=== PATIENT | female | born 1995 | race Hispanic/Latino ===

== ENCOUNTER 2021-11-30 00:27 | Emergency (ER) | payer OTHER, SELFPAY ==
[2021-11-30 00:40] VITALS: BP 139/95; PULSE 96; RESP 18; TEMP 36.8; O2SAT 100
[2021-11-30 00:56] LABS: Basophils Percent Auto 0.4 % (0.2-1.2); Eosinophils Absolute Auto 0.2 K/mm3 (0-0.3); Eosinophils Percent Auto 2.1 % (0-4.4); Hematocrit 34.2 % (37.0-47.0); Hemoglobin 10.9 g/dL (12.0-15.0); Immature Granulocyte Absolute 0.03 K/mm3 (0.00-0.031); Immature Granulocyte Percent A 0.3 % (0-0.5); Lymphocytes Absolute Auto 2.45 K/mm3 (0.9-3.2); Lymphocytes Percent Auto 23.9 % (18.3-44.2); Mean Corpuscular HGB Conc 31.9 g/dl (32-36); Mean Corpuscular Hemoglobin 26.8 pg (26-34); Mean Corpuscular Volume 84.2 fl (80-100); Mean Platelet Volume 10.1 fl (7.4-10.4); Monocytes Absolute Auto 0.6 K/mm3 (0.1-0.6); Monocytes Percent Auto 6.1 % (2.6-8.5); Neutrophils Absolute Auto 6.9 K/mm3 (1.3-6.7); Neutrophils Percent Auto 67.2 % (45.5-73.1); Platelet Count Result 318 k/mm3 (150-375); Red Blood Count 4.06 M/mm3 (4.2-5.4); Red Cell Distribution Width 13.9 % (11.5-14.5); White Blood Count 10.3 K/mm3 (4.5-10.0)
[2021-11-30 01:11] LABS: Alanine Aminotransferase 21 U/L (4-35); Albumin Level 4.2 g/dL (3.5-5.1); Alkaline Phosphatase 61 U/L (38-126); Anion Gap 8 mmol/L (8-16); Aspartate Amino Transferase 25 U/L (14-36); Bilirubin,Total 0.2 mg/dL (0.2-1.3); Blood Urea Nitrogen 11 mg/dL (7-17); Calcium 9.3 mg/dL (8.4-10.2); Carbon Dioxide 24 mmol/L (22-30); Chloride 104 mmol/L (98-107); Estimated CRCL calculation 91 ml/min; Estimated Glomerular Filt Rate > 60; Glucose 135 mg/dL (65-110); Lipase 176 U/L (23-300); Sodium 136 mmol/L (137-145)
--- NOTE | 2021-11-30 01:24 | ED.ABDPAIN ---
HPI - Abdominal Pain General Chief Complaint: Abdominal Pain Stated Complaint: abd pain Time Seen by Provider: 11/30/21 01:11 Source: patient and RN notes reviewed Mode of arrival: ambulatory Limitations: no limitations History of Present Illness HPI narrative: This a 26 year old Female who presents for evaluation of epigastric abdominal pain. She states her pain started 1 hour ago. She describes pain has constant squeezing . She took an omeprazole for her pain but she states she has not gotten relief. She has nausea but no vomiting, fever , or chills. She denies history of gallstones or similar pain. She states her mother had similar pain and she was diagnosed with gastritis. Pain rate 10/10. She is 11 weeks GA. She reports having US to confirm and she is being referred to [facility] for diabetes. Related Data Allergies Allergy/AdvReac Type Severity Reaction Status Date / Time No Known Allergies Allergy Verified 11/30/21 00:47 Review of Systems Review of Systems: All systems reviewed & are unremarkable except as noted in HPI and below Constitutional: Constitutional: Denies chills, Denies fever(s) and Denies weakness Cardiovascular: Cardiovascular: Denies chest pain Respiratory: Respiratory: Denies cough and Denies dyspnea Gastrointestinal: Gastrointestinal: Reports abdominal pain, Denies constipation, Denies diarrhea, Denies nausea and Denies vomiting Genitourinary: Genitourinary: Denies abnormal vaginal bleeding [facility] Past Medical History Medical History (Updated 11/30/21 @ 06:14 by Ruba Arredondo MD) Patient denies medical problems Surgical History Surgical History (Updated 11/30/21 @ 06:14 by Ruba Arredondo MD) No pertinent past surgical history Social History Social History (Updated 08/05/19 @ 13:35 by Lorena Ricketts PA-C) Smoking status: Never smoker Substance use: never Exam Const: General: no acute distress and alert Orientation/consciousness: patient oriented x3 Eyes: EOM: EOMs intact bilaterally Chest: Chest palpation & inspection: normal inspection of the chest Resp: Effort & Inspection: normal respiratory effort and no retractions Auscultation: clear to auscultation bilaterally Cardio: Rate: regular rate Rhythm: regular rhythm Heart sounds: no murmurs GI: GI Palp: Yes Soft to palpation, Yes Tenderness to palpation present (GI) (mild epigastric) and No Guarding due to palpation present (GI) Auscultation: normal bowel sounds : General: Yes no CVA tenderness Back/Spine/Pelvis: Back: no CVA tenderness Skin: General skin exam: normal color Rashes: no rashes Neuro: General: patient oriented x3, moves all extremities and CN's II-XI intact bilaterally Extrem: General: normal to inspection Psych: Mental Status: mental status grossly normal Affect: normal affect Course Reevaluation(s) Reevaluation #1: Patient states her pain is resolving. I performed bedside US and she has IUP with heart tone 150. She also has stone in her gallbladder. Negative varma's Date: 11/30/21 Time: 03:52 Vital Signs Vital signs: Vital Signs Temperature 98.2 F 11/30/21 00:40 Pulse Rate 96 11/30/21 00:40 Respiratory Rate 18 11/30/21 00:40 Blood Pressure 139/95 H 11/30/21 00:40 Pulse Oximetry 100 11/30/21 00:40 Temperature 98.2 F 11/30/21 00:40 Pulse Rate 79 11/30/21 03:07 Respiratory Rate 20 11/30/21 03:07 Blood Pressure 129/77 11/30/21 03:07 Pulse Oximetry 100 11/30/21 03:07 MDM - Abdominal Pain Lab Data Attestation: I reviewed the patient's lab results. Result diagrams: 11/30/21 00:51 11/30/21 00:51 Labs: Lab Results 11/30/21 11/30/21 11/30/21 Range/Units 00:51 00:51 01:41 WBC 10.3 H (4.5-10.0) K/mm3 RBC 4.06 L (4.2-5.4) M/mm3 Hgb 10.9 L (12.0-15.0) g/dL Hct 34.2 L (37.0-47.0) % MCV 84.2 (80-100) fl MCH 26.8 (26-34) pg MCHC 31.9 L (32-36
[2021-11-30] MEDS: ONDANSETRON INJ 4 MG/2 ML VIAL IV PUSH (01:46)
[2021-11-30] MEDS: MAG HYDROX/AL HYDROX/SIMETH 30 ML UDC PO (01:46)
[2021-11-30] MEDS: DICYCLOMINE HCL INJ 20 MG/2 ML VIAL IM (01:46)
[2021-11-30 01:59] LABS: Add Urine Microscopic? YES; Appearance Urine Cloudy (Clear); Bacteria Urine Trace /hpf; Bilirubin Urine Negative (Negative); Blood Urine 1+ (Negative); Color Urine Yellow (Yellow); Glucose Urine UA Negative (Negative); Ketones Urine 1+ mg/dL (Negative); Leukocyte Esterase Ur 3+ LEU/UL (Negative); Nitrate Urine Negative (Negative); Protein Urine Negative (Negative); Specific Grav Ur 1.015 (1.001-1.035); Squamous Epithelial Cell Urine Few /hpf (Few); Urobilinogen Urine Negative mg/dL (<2.0)
--- NOTE | 2021-11-30 03:03 | PC.NURSE ---
assumed care of pt at this time, report taken from sandra JENKINS. Pt alert and upright on stretcher, family at bedside.
[2021-11-30 03:07] VITALS: BP 129/77; PULSE 79; RESP 20; O2SAT 100
== END 2021-11-30 04:14 | disposition home or self-care (01) ==
PROVIDERS: Emergency Provider General Practice
DX: R10.84 Generalized abdominal pain (principal); R82.81 Pyuria
CPT/HCPCS: 36415; 80053; 81001; 81025; 83690; 85025; 96365; 96372; 96375; 99284; A9270; J0131; J0500; J2405